=== PATIENT | male | born 1945 | race Caucasian/White ===

== ENCOUNTER 2024-08-16 10:41 | Emergency (ER) | payer MEDICARE, OTHER ==
[~2024-08-16] VITALS: Ht 193 cm; Wt 89.9 kg
[~2024-08-16 10:41] MED LIST: NO HOME MEDS
--- NOTE | 2024-08-16 10:47 | Physician Documentation ---
History of Present Illness ~ Chief Complaint: Wrist pain Stated Complaint: R WRIST PAIN Time Seen by MD: 11:03 Primary Medical Doctor: none Kennedy consulting surgeon HPI 78-year-old male presents to the ED after falling today while playing tennis and injuring his right wrist. Denies any head strikes a 90 blood thinners. States he does have a range of motion but not full range of motion without pain Day of Onset: Aug 16, 2024 Tetanus within 5 years: No Medication Reconciliation Allergies: Coded Allergies: No Known Allergies (Unverified , 08/16/24) Miscellaneous Medications Home Med List (No Home Medications), (Reported) Past Medical History Past Medical History: No Pertinent History Past Surgical History: noncontributory Drug Use: none Lives In: Home Review of Systems All Other Systems at this time: Reviewed and Negative ROS General: Alert, no apparent distress. Extremities: Decreased range of motion due to pain right wrist mild circumferential swelling no deformity Neurologic: Oriented x4. Psychiatric: Normal mood and affect. Skin: Normal color, warm and dry. No edema, no ecchymosis. Progress Results/Orders Results/Orders Orders - DAREN HERNÁNDEZ NP Shoulder, Complete (Min 2 Vws) (08/16/24 11:03) Wrist, Complete (3vw Min) (08/16/24 11:03) Completed Orders - DAREN HERNÁNDEZ NP Shoulder, Complete (Min 2 Vws) (08/16/24 11:03) Wrist, Complete (3vw Min) (08/16/24 11:03) Vital Signs 08/16/24 08/16/24 10:46 12:05 Temp 97.8 97.8 Pulse 70 70 Resp 18 16 B/P (MAP) 139/67 118/70 Pulse Ox 100 98 Medical Decision Making Findings Per my interpretation of both shoulder and wrist x-ray there are no acute fractures were evident. Patient seemed relieved to hear this. He states he can manage the pain in the outpatient setting. He was him to use ibuprofen and ice and to take it easy. I offered a sling but he declined Departure Impression: Primary Impression: Wrist joint pain Additional Impression: Shoulder pain, right Discharge Instructions: Shoulder Pain, [id number], Wrist Pain, Adult Referrals: NO PRIMARY CARE PROVIDER (PCP) Signature Scribe Signature: f Attestation: The note accurately reflects work and decisions made by me.Daren Hernández - JÚNIOR 08/16/24 16:19 DAREN HERNÁNDEZ NP Aug 16, 2024 10:47
--- NOTE | 2024-08-16 11:43 | RADIOLOGY REPORT ---
INDICATION: pain TECHNIQUE: 4 radiographic views of the right wrist were obtained. COMPARISON: None FINDINGS: There is no evidence of acute fracture or dislocation.The visualized joint space is well m aintained.The alignment is anatomical.The surrounding soft tissues are unremarkable.There is no bony lesions or erosions identified. IMPRESSION: No acute fracture
--- NOTE | 2024-08-16 11:46 | RADIOLOGY REPORT ---
EXAM: DI SHOULDER, COMPLETE (MIN 2 VWS) CLINICAL INDICATION: pain TECHNIQUE: DI SHOULDER, COMPLETE (MIN 2 VWS) Comparison: None FINDINGS/IMPRESSION: There is no evidence of acute fracture or dislocation. Surgical sutures right humeral head. The alignment is anatomical. There is no radiopaque foreign body.
[2024-08-16 12:05] VITALS: BP 118/70; PULSE 70; RESP 16; TEMP 97.8; O2SAT 98
== END 2024-08-16 12:06 | disposition home or self-care (01) ==
LOC: ER 10:42
DX: M25.531 Pain in right wrist (principal); M25.511 Pain in right shoulder; W19.XXXA Unspecified fall, initial encounter; Y93.73 Activity, racquet and hand sports; Y92.89 Other specified places as the place of occurrence of the external cause; Y99.8 Other external cause status
CPT/HCPCS: 73030; 73110; 99284